=== PATIENT | female | born 1970 | race Caucasian/White ===

== ENCOUNTER → 2021-01-23 | Outpatient (CLI) | payer BC | LOC: KOH-I 14:22 | DX: J32.9 Chronic sinusitis, unspecified (principal) | CPT/HCPCS: 70486 ==

== ENCOUNTER 2021-10-25 15:34 | Inpatient (IN) | payer BC ==
[~2021-10-25] VITALS: Ht 157.5 cm; Wt 88.5 kg
[2021-10-25] MEDS ORDERED: FLONASE 0.05% N16 GM (18:25)
[2021-10-25] MEDS ORDERED: LEVOTHYROXINE125 MCG PO (18:25)
[2021-10-25] MEDS ORDERED: OMEPRAZOLE20 M2 PO (18:25)
[2021-10-25] MEDS ORDERED: PROZAC20 MG PO (18:25)
[2021-10-25] MEDS ORDERED: CRESTOR20 MG PO (18:26)
[2021-10-25] MEDS ORDERED: ASPIRIN EC81 MG PO (18:26)
[2021-10-25] MEDS ORDERED: CENTRUM COMPLE1 EACH PO (18:30)
[2021-10-25] MEDS ORDERED: ESTRADIOL1 EAC3 TD (18:30)
[2021-10-25] MEDS ORDERED: ZYRTEC10 MG PO (18:30)
[2021-10-25] MEDS ORDERED: FISH OIL 1,4001 EACH PO (18:31)
[2021-10-25] MEDS ORDERED: MELATONIN10 M2 PO (18:31)
[2021-10-26 06:37] LABS: HEMOGLOBIN 10.6 gm/dl (12.3-15.3); RED BLOOD COUNT 3.1 M/UL (4.00-5.10); WHITE BLOOD COUNT 3.2 K/UL (4.5-11.0)
[2021-10-27 03:00] LABS: HEMOGLOBIN 10.4 gm/dl (12.3-15.3); RED BLOOD COUNT 3.03 M/UL (4.00-5.10); WHITE BLOOD COUNT 3.8 K/UL (4.5-11.0)
[2021-10-28 03:36] LABS: HEMOGLOBIN 10.3 gm/dl (12.3-15.3); RED BLOOD COUNT 3.02 M/UL (4.00-5.10); WHITE BLOOD COUNT 4.2 K/UL (4.5-11.0)
[2021-10-28 06:41] LABS: CREATININE, URINE 33.4 mg/dL (Not Estab.)
[2021-10-28 10:11] LABS: HBSAG SCREEN Negative (Negative); HEP A AB, IGM Negative (Negative); HEP B CORE AB, IGM Negative (Negative); HEP C VIRUS AB 0.1 (0.0-0.9)
[2021-10-29 16:12] LABS: A/G RATIO 1.3 (0.7-1.7); ALBUMIN 3.1 g/dL (2.9-4.4); ALPHA-1-GLOBULIN 0.2 g/dL (0.0-0.4); BETA GLOBULIN 0.6 g/dL (0.7-1.3); GAMMA GLOBULIN 0.6 g/dL (0.4-1.8); GLOBULIN, TOTAL 2.4 g/dL (2.2-3.9); IMMUNOGLOBULIN A, QN, SERUM 154 mg/dL (87-352); IMMUNOGLOBULIN G, QN, SERUM 610 mg/dL (586-1602); IMMUNOGLOBULIN M, QN, SERUM 102 mg/dL (26-217); M-SPIKE Not Observed g/dL (Not Observed); PROTEIN, TOTAL, SERUM 5.5 g/dL (6.0-8.5)
== END 2021-10-28 19:42 | disposition home or self-care (01) | DRG 683 ==
LOC: M/S 17:55
PROVIDERS: Internal Medicine; Internal Medicine Nephrology; ADMIT Internal Medicine
DX: N17.0 Acute kidney failure with tubular necrosis (principal); E87.2 Acidosis; E87.1 Hypo-osmolality and hyponatremia; D61.818 Other pancytopenia; Z20.822 Contact with and (suspected) exposure to COVID-19; E86.0 Dehydration; E11.9 Type 2 diabetes mellitus without complications; I10 Essential (primary) hypertension; K75.9 Inflammatory liver disease, unspecified; E78.5 Hyperlipidemia, unspecified; M19.90 Unspecified osteoarthritis, unspecified site; E66.01 Morbid (severe) obesity due to excess calories; K21.9 Gastro-esophageal reflux disease without esophagitis; E03.9 Hypothyroidism, unspecified; D64.9 Anemia, unspecified; E87.6 Hypokalemia; E83.42 Hypomagnesemia; L94.9 Localized connective tissue disorder, unspecified; F41.9 Anxiety disorder, unspecified; R94.5 Abnormal results of liver function studies; Z79.82 Long term (current) use of aspirin; Z79.01 Long term (current) use of anticoagulants; Z88.2 Allergy status to sulfonamides; Z98.890 Other specified postprocedural states; Z98.51 Tubal ligation status; Z82.61 Family history of arthritis; Z68.35 Body mass index [BMI] 35.0-35.9, adult
CPT/HCPCS: 36415; 80053; 80074; 81001; 82043; 82570; 82607; 82728; 82746; 82784; 82962; 83540; 83550; 83615; 83735; 83883; 84155; 84156; 84165; 85025; 85045; 86334; J1644; J3475; J7030